=== PATIENT | female | born 1985 | race Caucasian/White ===

== ENCOUNTER 2019-10-15 19:32 | Observation (INO) | payer OTHER ==
[~2019-10-15] VITALS: Ht 175.3 cm; Wt 112.1 kg
--- NOTE | 2019-10-15 19:57 | NUR ---
PT C/O BILAT UPPER ARM SWELLING AFTER CROSSFIT ON FRIDAY. PT STATES ROM HAS DECREASED WELL. PT CONNECTED TO MONITORING. CALL LIGHT IN REACH.
[2019-10-15 20:31] LABS: BASOPHILS # (AUTO) 0.08 x10^3/uL (0-0.1); BASOPHILS % (AUTO) 1 % (0-1); EOSINOPHILS # (AUTO) 0.16 x10^3/uL (0-0.4); EOSINOPHILS % (AUTO) 2 % (1-7); LYMPHOCYTES % (AUTO) 33 % (22-44); MD NO; MEAN CORPUSCULAR HEMOGLOBIN 29.5 pg (27.0-34.8); MEAN CORPUSCULAR HGB CONC 34.2 g/dL (32.4-35.8); MEAN CORPUSCULAR VOLUME 86.4 fL (80-100); MEAN PLATELET VOLUME 7.9 fL (7.4-10.4); MONOCYTES % (AUTO) 5 % (2-9); NEUTROPHILS # (AUTO) 4.89 x10^3/uL (1.8-6.8); NEUTROPHILS % (AUTO) 59 % (42-75); PLATELET COUNT 312 x10^3/uL (130-400); RED BLOOD COUNT 4.74 x10^6/uL (3.82-5.3); RED CELL DISTRIBUTION WIDTH 12.3 % (9.6-15.2)
[2019-10-15 20:37] LABS: ALBUMIN 3.8 g/dL (3.4-5.0); ANION GAP 9 mmol/L (5-15); CALCIUM 8.6 mg/dL (8.5-10.1); CHLORIDE 109 mmol/L (98-107); CREATININE 0.93 mg/dL (0.55-1.02)
[2019-10-15 21:35] LABS: CREATINE KINASE, TOTAL 25146 U/L (26-192)
[2019-10-15] MEDS ORDERED: SODIUM CHLORIDE 0.9% 1,000ML IVBOLUS ONE (22:00)
[2019-10-15] MEDS ORDERED: SODIUM CHLORIDE 0.9% 1,000 ML IV ONE (22:01)
--- NOTE | 2019-10-15 22:23 | NUR ---
PIV PLACED. 2L NS HANGING FOR BOLUS. HOSPITALIST AT BEDSIDE.
--- NOTE | 2019-10-15 22:28 | NUR ---
REPORT GIVEN TO ROYAL VALENTIN.
--- NOTE | 2019-10-15 22:31 | NUR ---
PER EDMD, OK TO HOLD 1L NS @125 ONCE. PT WILL BE GETTING ADMIT IVF ONCE UPSTAIRS, AND PT IS GETTING 2L BOLUS AT THIS TIME.
[2019-10-15] MEDS: SODIUM CHLORIDE 0.9% 1,000 ML IV SCH (22:36)
[2019-10-15] MEDS ORDERED: IBUPROFEN 600 MG TABLET PO PRN (23:00)
[2019-10-15] MEDS ORDERED: KETOROLAC 30 MG/1 ML IV PRN (23:00)
[2019-10-15] MEDS ORDERED: CYCLOBENZAPRINE 10 MG TABLET PO PRN (23:00)
[2019-10-15] MEDS ORDERED: ACETAMINOPHEN 325 MG TABLET PO PRN (23:00)
[2019-10-15] MEDS: ENOXAPARIN 40 MG/0.4 ML SQ SCH (23:00)
[2019-10-15] MEDS ORDERED: hydrALAzine 20 MG/ML, 1ML IVPush PRN (23:00)
[2019-10-15] MEDS ORDERED: DOCUSATE 100 MG CAPSULE PO PRN (23:00)
[2019-10-15] MEDS ORDERED: ONDANSETRON 2MG/ML, 2ML IVPush PRN (23:00)
[2019-10-15 23:01] VITALS: BP 160/87
[2019-10-16 01:04] VITALS: BP 142/69
[2019-10-16] MEDS ORDERED: POTASSIUM CHLORIDE 20 MEQ TAB.ER.PRT PO ONE (01:30)
[2019-10-16 04:37] LABS: BASOPHILS # (AUTO) 0.03 x10^3/uL (0-0.1); BASOPHILS % (AUTO) 0 % (0-1); EOSINOPHILS % (AUTO) 3 % (1-7); LYMPHOCYTES # (AUTO) 2.99 x10^3/uL (1-3.4); LYMPHOCYTES % (AUTO) 39 % (22-44); MD NO; MEAN CORPUSCULAR HEMOGLOBIN 29.5 pg (27.0-34.8); MEAN CORPUSCULAR VOLUME 86.8 fL (80-100); MEAN PLATELET VOLUME 7.8 fL (7.4-10.4); MONOCYTES # (AUTO) 0.42 x10^3/uL (0.2-0.8); MONOCYTES % (AUTO) 6 % (2-9); NEUTROPHILS # (AUTO) 3.99 x10^3/uL (1.8-6.8); NEUTROPHILS % (AUTO) 52 % (42-75); PLATELET COUNT 262 x10^3/uL (130-400); RED BLOOD COUNT 4.43 x10^6/uL (3.82-5.3); RED CELL DISTRIBUTION WIDTH 12.6 % (9.6-15.2)
[2019-10-16 04:46] LABS: ANION GAP 6 mmol/L (5-15); CALCIUM 7.8 mg/dL (8.5-10.1); CHLORIDE 110 mmol/L (98-107)
[2019-10-16] MEDS: SODIUM CHLORIDE 0.9% 1,000 ML IV SCH ×3 (05:00→18:51)
[2019-10-16 05:15] LABS: CREATININE 0.74 mg/dL (0.55-1.02)
[2019-10-16 05:31] LABS: CREATINE KINASE, TOTAL 16949 U/L (26-192)
[2019-10-16 07:07] VITALS: BP 146/83
[2019-10-16 13:38] VITALS: BP 157/86
[2019-10-16 20:03] VITALS: BP 150/96
[2019-10-16] MEDS: ENOXAPARIN 40 MG/0.4 ML SQ SCH (23:00)
[2019-10-17 00:52] VITALS: BP 145/87
[2019-10-17] MEDS: SODIUM CHLORIDE 0.9% 1,000 ML IV SCH ×4 (01:00→20:04)
[2019-10-17 05:00] LABS: BASOPHILS # (AUTO) 0.03 x10^3/uL (0-0.1); BASOPHILS % (AUTO) 0 % (0-1); EOSINOPHILS # (AUTO) 0.14 x10^3/uL (0-0.4); EOSINOPHILS % (AUTO) 2 % (1-7); LYMPHOCYTES # (AUTO) 2.35 x10^3/uL (1-3.4); LYMPHOCYTES % (AUTO) 35 % (22-44); MD NO; MEAN CORPUSCULAR HEMOGLOBIN 29.6 pg (27.0-34.8); MEAN CORPUSCULAR HGB CONC 33.9 g/dL (32.4-35.8); MEAN CORPUSCULAR VOLUME 87.1 fL (80-100); MEAN PLATELET VOLUME 8.1 fL (7.4-10.4); MONOCYTES # (AUTO) 0.31 x10^3/uL (0.2-0.8); MONOCYTES % (AUTO) 5 % (2-9); NEUTROPHILS # (AUTO) 3.95 x10^3/uL (1.8-6.8); NEUTROPHILS % (AUTO) 58 % (42-75); PLATELET COUNT 256 x10^3/uL (130-400); RED BLOOD COUNT 4.34 x10^6/uL (3.82-5.3); RED CELL DISTRIBUTION WIDTH 12.8 % (9.6-15.2)
[2019-10-17 05:05] LABS: CALCIUM 7.9 mg/dL (8.5-10.1); CHLORIDE 111 mmol/L (98-107); CREATININE 0.73 mg/dL (0.55-1.02)
[2019-10-17 05:18] LABS: ANION GAP 9 mmol/L (5-15)
[2019-10-17 05:30] LABS: CREATINE KINASE, TOTAL 10663 U/L (26-192)
[2019-10-17 07:03] VITALS: BP 120/68
[2019-10-17 13:20] VITALS: BP 134/94
[2019-10-17 19:46] VITALS: BP 149/79
[2019-10-17] MEDS: ENOXAPARIN 40 MG/0.4 ML SQ SCH (23:00)
[2019-10-18 00:48] VITALS: BP 166/98
[2019-10-18] MEDS: SODIUM CHLORIDE 0.9% 1,000 ML IV SCH ×2 (03:32→09:34)
[2019-10-18 07:21] VITALS: BP 129/83
[2019-10-18 13:34] VITALS: BP 175/96
== END 2019-10-18 15:41 | disposition home or self-care (01) ==
LOC: ED 21:26 → EDIP 22:01 → INTOOBSV 22:01 → 3N 22:48 → DCLOUNGE 10-18 15:27
PROVIDERS: ADMIT Hospitalist; ATTEND Hospitalist
DX: M62.82 Rhabdomyolysis (principal); E87.6 Hypokalemia; E66.9 Obesity, unspecified; D50.0 Iron deficiency anemia secondary to blood loss (chronic); R03.0 Elevated blood-pressure reading, without diagnosis of hypertension; N93.8 Other specified abnormal uterine and vaginal bleeding; D63.8 Anemia in other chronic diseases classified elsewhere
CPT/HCPCS: 36415; 80048; 82040; 82550; 84443; 85025; 85651; 99284; G0378; J7030

== ENCOUNTER → 2019-10-21 | Outpatient (CLI) | payer OTHER ==
[2019-10-21 15:21] LABS: ANION GAP 5 mmol/L (5-15); CALCIUM 9.1 mg/dL (8.5-10.1); CHLORIDE 107 mmol/L (98-107); CREATININE 0.85 mg/dL (0.55-1.02)
[2019-10-21 15:23] LABS: CREATINE KINASE, TOTAL 633 U/L (26-192)
== END | disposition home or self-care (01) ==
LOC: LAB 14:57
PROVIDERS: ATTEND Physician Assistant
DX: M62.82 Rhabdomyolysis (principal)
CPT/HCPCS: 36415; 80048; 82550